=== PATIENT | female | born 1990 | race Caucasian/White ===

== ENCOUNTER 2017-09-17 12:36 | Emergency (ER) | payer OTHER ==
[~2017-09-17] VITALS: Ht 170.2 cm; Wt 93.0 kg
[2017-09-17 16:29] VITALS: BP 165/99
[2017-09-17] MEDS ORDERED: IBUPROFEN400 MG PO (16:29)
[2017-09-17] MEDS ORDERED: TYLENOL WITH C1 EACH PO (16:29)
== END 2017-09-17 17:01 | disposition home or self-care (01) ==
LOC: FSED 12:36
DX: O20.9 Hemorrhage in early pregnancy, unspecified (principal); O03.4 Incomplete spontaneous abortion without complication
CPT/HCPCS: 76801; 76817; 80307; 81003; 81025; 99284

== ENCOUNTER 2017-10-07 09:09 | Emergency (ER) | payer OTHER ==
[~2017-10-07] VITALS: Ht 170.2 cm; Wt 81.6 kg
[~2017-10-07 09:09] MED LIST: IBUPROFEN400 MG PO; TYLENOL WITH C1 EACH PO
[2017-10-07] MEDS ORDERED: SODIUM CHLORIDE 0.9% 1000ML 1,000 ML ONE (09:45)
[2017-10-07] MEDS ORDERED: MORPHINE SULFATE INJ 4 MG/ML INJ IV ONE (09:45)
[2017-10-07] MEDS ORDERED: PROMETHAZINE HCL (IM) 25 MG/ML VIAL IM ONE (09:45)
[2017-10-07] MEDS ORDERED: KETOROLAC TROMETHAMINE 30 MG/ML VIAL IV ONE (09:45)
[2017-10-07] MEDS ORDERED: PROMETHAZINE HC25 M1 PO (10:45)
[2017-10-07] MEDS ORDERED: VALIUM5 MG PO (10:45)
[2017-10-07 10:58] VITALS: BP 114/65
[2017-10-07] MEDS: RHO (D) IMMUNE GLOBULIN 300 MCG SYRINGE IV ONE ×2 (11:20→11:21)
== END 2017-10-07 11:37 | disposition home or self-care (01) ==
LOC: FSED 09:09
DX: O20.9 Hemorrhage in early pregnancy, unspecified (principal); O03.4 Incomplete spontaneous abortion without complication
CPT/HCPCS: 80053; 85025; 96374; 96375; 99283; J1566; J1885; J2270; J2550; J7030